=== PATIENT | female | born 1960 | race Hispanic/Latino ===

== ENCOUNTER 2016-09-28 07:53 | Outpatient (CLI) | payer OTHER ==
--- NOTE | 2016-09-28 10:31 | ULT ---
RIGHT UPPER QUADRANT ULTRASOUND: History: Right upper quadrant pain x 3 days. FINDINGS: There is echogenic gallstone in the gallbladder lumen measuring up to 2.0 cm. Gallbladder wall show s mild thickening. Technologist describes a positive Rivera's sign. The common duct is normal caliber at 3 mm. The liver shows increased echogenicity suggesting fatty infiltration. The visualized right kidney is unremarkable. Aorta is imaged and appears normal caliber. The pancreas is partially imaged and ap pears unremarkable as visualized. IMPRESSION: 1. Cholelithiasis with thickened gallbladder wall and positive Rivera's sign. Findings would sugge st cholecystitis. 2. Mild fatty infiltration of the liver. POS: OFF
== END 2016-09-28 07:54 | disposition home or self-care (01) ==
LOC: MADULT 07:53
PROVIDERS: ATTEND Family Medicine
DX: R10.11 Right upper quadrant pain (principal); K80.20 Calculus of gallbladder without cholecystitis without obstruction
CPT/HCPCS: 76705

== ENCOUNTER 2020-09-14 09:48 | Outpatient (CLI) | payer OTHER ==
--- NOTE | 2020-09-14 10:18 | RAD ---
Lumbar spine: 3 views INDICATIONS:Low back pain COMPARISON:None FINDINGS: Vertebral bodies maintain normal height. Mild lateral wedging on the left at L4 and there is mild sco liotic curvature. Loss of disc space at all levels. Normal alignment is maintained. Prominent anterior and lateral osteophytes in all levels. Bridging osteophytes at several levels. No soft tissue abnormality. IMPRESSION: Prominent hypertrophic spurring. Lateral wedging L4 on the left.
== END 2020-09-14 09:49 | disposition home or self-care (01) ==
LOC: MADRAD 09:48
PROVIDERS: ATTEND Family Medicine
DX: M54.30 Sciatica, unspecified side (principal); M54.9 Dorsalgia, unspecified; E11.65 Type 2 diabetes mellitus with hyperglycemia; M46.06 Spinal enthesopathy, lumbar region
CPT/HCPCS: 72100

== ENCOUNTER 2022-05-17 08:20 | Emergency (ER) | payer OTHER ==
[2022-05-17 08:58] LABS: #Basophils 0.1 thou/uL (0.0-0.2); #Eosinphils 0.2 thou/uL (0.0-0.7); #Lymphocytes 1.1 thou/uL (1.20-3.40); #Monocytes 0.5 thou/uL (0.11-0.59); #Neutrophils 5.9 thou/uL (1.40-6.50); %Basophils 0.9 % (0.0-1.0); %Eosinophils 2.7 % (0.0-10.0); %Lymphocytes 14.3 % (21.0-51.0); %Monocytes 5.9 % (0.0-10.0); %Neutrophils 76.2 % (42.0-75.0); Hemoglobin 13.9 g/dL (12.0-16.0); Mean Corpuscular HGB CONC 31.9 g/dL (32.0-36.0); Mean Corpuscular Hemoglobin 29.6 pg (27.0-31.0); Mean Corpuscular Volume 92.8 fl (78.0-98.0); Mean Platelet Volume 6.7 fL (7.4-10.4); Platelet Count 266 thou/uL (130-400); RBC Distribution Width 11.5 % (11.5-14.5); Red Blood Cell (RBC) Count 4.71 mill/uL (4.20-5.40); White Blood Cell (WBC) Count 7.7 thou/uL (4.8-10.8)
[2022-05-17] MEDS ORDERED: Ondansetron PF 4 MG/2 ML Vial ONE (09:04)
[2022-05-17] MEDS ORDERED: Sodium Chloride 0.9% 1,000 ML ONE (09:04)
[2022-05-17] MEDS ORDERED: Ketorolac Tromethamine 30 MG/ML VIAL ONE (09:04)
[2022-05-17 09:18] LABS: ALT (SGPT) 21 U/L (8-55); AST (SGOT) 20 U/L (5-34); Albumin 4.2 g/dL (3.4-4.8); Alkaline Phosphatase 52 U/L (40-110); Anion Gap 15 mmol/L (10-20); BUN (Urea Nitrogen) 21 mg/dL (9.8-20.1); Bilirubin, Total 0.3 mg/dL (0.2-1.2); Calc. Creatinine Clearance 0 mL/min (70-130); Calcium 9.7 mg/dL (7.8-10.44); Carbon Dioxide 25 mmol/L (23-31); Chloride 104 mmol/L (98-107); Estimated GFR 68; Globulin 3.1 g/dL (2.4-3.5); Glucose 224 mg/dL (80-115); Potassium 4.3 mmol/L (3.5-5.1); Protein, Total 7.3 g/dL (5.8-8.1); Sodium 140 mmol/L (136-145)
== END 2022-05-17 10:22 | disposition home or self-care (01) ==
LOC: MADERS 08:20
DX: G43.909 Migraine, unspecified, not intractable, without status migrainosus (principal); F43.0 Acute stress reaction; E11.9 Type 2 diabetes mellitus without complications; I10 Essential (primary) hypertension
CPT/HCPCS: 70450; 80053; 85025; 96374; 96375; J1885; J2405; J7050